=== PATIENT | male | born 1990 | race Caucasian/White ===

== ENCOUNTER 2024-04-10 20:15 | Emergency (ER) | payer OTHER ==
[2024-04-10] MEDS ORDERED: KETOROLAC 30 MG/ML INJ ONE (22:37)
[2024-04-10] MEDS ORDERED: dexAMETHasone 10 MG/ML VIAL ONE (22:37)
[2024-04-10] MEDS ORDERED: LIDOCAINE 4% PATCH ONE (22:38)
[2024-04-10] MEDS ORDERED: HYDROCODONE/APAP 5/325 MG TAB ONE (22:38)
--- NOTE | 2024-04-11 00:10 | ER ---
Nurse's Notes [facility] Name: Da Cook Age: 33 yrs Sex: Male : 1990 Arrival Date: 04/10/2024 Time: 20:15 Bed 8 Private MD: Diagnosis: Pain in thoracic spine;anterior compression T6/T8 Presentation: 04/10 20:34 Chief complaint: Patient states: Pt c/o sudden onset of severe middle back pain while tl4 carrying heavy soda box while walking down steps. Pt states he heard and felt a 'pop'. Coronavirus screen: At this time, the client does not indicate any symptoms associated with coronavirus-19. Ebola Screen: No symptoms or risks identified at this time. Initial Sepsis Screen: Does the patient meet any 2 criteria? No. Patient's initial sepsis screen is negative. Does the patient have a suspected source of infection? No. Patient's initial sepsis screen is negative. Risk Assessment: Do you want to hurt yourself or someone else? Patient reports no desire to harm self or others. Onset of symptoms was April 10, 2024 at 19:30. 20:34 Method Of Arrival: Wheelchair tl4 20:34 Acuity: LUPE 3 tl4 Triage Assessment: 20:36 General: Appears uncomfortable, Behavior is cooperative. Pain: Complains of pain in tl4 back. EENT: No signs and/or symptoms were reported regarding the EENT system. Neuro: Level of Consciousness is awake, alert, obeys commands, Oriented to person, place, time, situation, Moves all extremities. Full function. Cardiovascular: Capillary refill < 3 seconds Patient's skin is warm and dry. Respiratory: Airway is patent Respiratory effort is even, unlabored, Respiratory pattern is regular, symmetrical. GI: No signs and/or symptoms were reported involving the gastrointestinal system. : No signs and/or symptoms were reported regarding the genitourinary system. Derm: No signs and/or symptoms reported regarding the dermatologic system. Musculoskeletal: pain in middle back. Historical: - Allergies: 20:36 No Known Allergies; tl4 - Home Meds: 20:36 None [Active]; tl4 - PMHx: 20:36 None; tl4 - PSHx: 20:36 None; tl4 - Immunization history:: Adult Immunizations unknown. - Infectious Disease History:: Denies. - Social history:: Smoking status: Patient denies any tobacco usage or history of. Screenin:58 [facility] ED Fall Risk Assessment (Adult) History of falling in the last 3 months, tm6 including since admission No falls in past 3 months (0 pts) Confusion or Disorientation No (0 pts) Intoxicated or Sedated No (0 pts) Impaired Gait No (0 pts) Mobility Assist Device Used No (0 pt) Altered Elimination No (0 pt) Score/Fall Risk Level 0 - 2 = Low Risk Oriented to surroundings, Maintained a safe environment, Educated pt \T\ family on fall prevention, incl call for assistance when getting out of bed. Abuse screen: Denies threats or abuse. Denies injuries from another. Nutritional screening: No deficits noted. Tuberculosis screening: No symptoms or risk factors identified. Assessment: 22:58 General: Appears uncomfortable, Behavior is calm, cooperative. Pain: Complains of pain tm6 in thoracic area Pain does not radiate. Pain currently is 10 out of 10 on a pain scale. Quality of pain is described as sharp, Pain began suddenly, Aggravated by increased activity, repositioning. Neuro: Level of Consciousness is awake, alert, obeys commands, Oriented to person, place, time, situation. Cardiovascular: Patient's skin is warm and dry. Respiratory: Airway is patent Respiratory effort is even, unlabored, Respiratory pattern is regular, symmetrical. GI: Abdomen is round non-distended. : No signs and/or symptoms were reported regarding the genitourinary system. EENT: No signs and/or symptoms were reported regarding the EENT system. Derm: No signs and/or symptoms reported regarding the dermatologic system. Musculoskeletal: Reports pain in thoracic area since earlier today. Pain is 10 out of 10 on a pain scale. 04/11 00:09 Reassessment: Patient and/or family updated on plan of care and expected duration. Pain ha1 level reassessed. Patient is alert, oriented x 3, equal unlabored respirations, skin warm/dry/pink. Vital Signs: 04/10 20:34 BP 161 / 82; Pulse 86; Resp 20; Temp 97.8(TE); Pulse Ox 99% on R/A; Weight 181.44 kg; tl4 Height 6 ft. 2 in. ; Pain 10/10; 04/11 00:00 BP 130 / 96; Pulse 73; Resp 17 S; Pulse Ox 100% on R/A; ha1 04/10 20:34 Body Mass Index 51.36 (181.44 kg, 187.96 cm) tl4 07 20:34 Pain Scale: Adult tl4 ED Course: 04/10 20:16 Patient arrived in ED. im 20:26 Pearl Clark PA-C is PHCP. sb4 20:26 Elio Vazquez MD is Attending Physician. sb4 20:36 Triage completed. tl4 20:37 Arm band placed on right wrist. tl4 22:57 Ephraim Thomas, JIMBO is Primary Nurse. tm6 22:58 Patient has correct armband on for positive identification. Bed in low position. Call tm6 light in reach. Side rails up X 1. Provided Education on: use of call calderon. Client placed on continuous cardiac and pulse oximetry monitoring. NIBP monitoring applied. Pulse ox on. NIBP on. Door closed. Noise minimized. Lights dimmed. 23:09 Spine Thoracic Ap/Lat XRAY In Process Unspecified. EDMS 04/11 00:21 No provider procedures requiring assistance completed. Patient did not have IV access ha1 during this emergency room visit. Administered Medications: 04/10 22:57 Drug: Lidoderm Topical Patch 5 % (700 mg/patch) 1 patches Topical once; leave on for 12 tm6 hours; cover most painful area; may cut into smaller pieces Route: Topical; Site: affected area; 04/11 00:21 Follow up: Response: No adverse reaction 1 04/10 22:58 Drug: Ketorolac IM 60 mg IM once Route: IM; Site: left gluteus; tm6 04/11 00:00 Follow up: Response: No adverse reaction; Marked relief of symptoms; Pain is decreased ha1 04/10 22:58 Drug: Dexamethasone IM 10 mg IM once Route: IM; Site: right deltoid; tm6 04/11 00:00 Follow up: Response: No adverse reaction; Marked relief of symptoms 1 04/10 22:58 Drug: HYDROcodone-acetaminophen PO 5 mg-325 mg 2 tabs PO once Route: PO; tm6 04/11 00:00 Follow up: Response: No adverse reaction; Pain is decreased; RASS: Alert and Calm (0) ha Medication: 07/06 22:58 VIS not applicable for this client. tm6 Outcome: 04/11 00:09 Discharge ordered by . corine 00:21 Discharged to home ambulatory, with family, ha1 00:21 Condition: stable 00:21 Discharge instructions given to patient, family, Instructed on discharge instructions, follow up and referral plans. medication usage, Demonstrated understanding of instructions, follow-up care, medications, Prescriptions given X 3, 00:22 Patient left the ED. ha1 Signatures: Dispatcher [employer] EDIN Amanda Webb RN RN ha1 Pearl Clark, PA-C PA-C sb4 iDor Ponce Tawney RN RN tm6 Lev Ramos RN RN tl4
--- NOTE | 2024-04-11 00:10 | EDPHYS ---
Physician Documentation [facility] Name: Da Cook Age: 33 yrs Sex: Male : 1990 Arrival Date: 04/10/2024 Time: 20:15 Bed 8 Private MD: ED Physician Elio Vazquez HPI: 04/10 22:19 This 33 yrs old Male presents to ER via Wheelchair with complaints of Back Pain. sb4 22:19 The patient presents with pain that is acute. The symptoms are located in the thoracic sb4 area. Onset: The symptoms/episode began/occurred just prior to arrival. The pain does not radiate. Associated signs and symptoms: The patient has no apparent associated signs or symptoms. The problem was sustained when lifting heavy object. The patient has not experienced similar symptoms in the past. The patient has not recently seen a physician. Historical: - Allergies: 20:36 No Known Allergies; tl4 - Home Meds: 20:36 None [Active]; tl4 - PMHx: 20:36 None; tl4 - PSHx: 20:36 None; tl4 - Immunization history:: Adult Immunizations unknown. - Infectious Disease History:: Denies. - Social history:: Smoking status: Patient denies any tobacco usage or history of. ROS: 22:19 Constitutional: Negative for fever, chills, and weight loss, sb4 22:19 Back: Positive for injury or acute deformity, decreased range of motion, pain at rest, pain with movement, of the thoracic area, 22:19 All other systems are negative, Exam: 22:19 Head/Face: Normocephalic, atraumatic. Eyes: Extra-ocular motions intact. Periorbital sb4 areas with no swelling, redness, or edema. ENT: Mucous membranes moist. Skin: Warm, dry with normal turgor. Normal color with no rashes, no lesions, and no evidence of cellulitis. MS/ Extremity: Pulses equal, no cyanosis. Neurovascular intact. Full, normal range of motion. 22:19 Constitutional: The patient appears alert, awake, obese, in obvious pain, uncomfortable, 22:19 Back: pain, that is moderate, ROM is painful, normal spinal alignment noted, CVA tenderness, is absent, muscle spasm, is not present, 22:19 Neuro: Motor: is grossly normal based on the patient's age, no acute changes, moves all fours, Sensation: is normal, Gait: unable to assess, in pain, Vital Signs: 20:34 BP 161 / 82; Pulse 86; Resp 20; Temp 97.8(TE); Pulse Ox 99% on R/A; Weight 181.44 kg; tl4 Height 6 ft. 2 in. ; Pain 10/10; 04/11 00:00 BP 130 / 96; Pulse 73; Resp 17 S; Pulse Ox 100% on R/A; ha1 04/10 20:34 Body Mass Index 51.36 (181.44 kg, 187.96 cm) tl4 04/10 20:34 Pain Scale: Adult tl4 MDM: 04/10 20:29 Patient medically screened. sb4 04/11 00:08 Data reviewed: vital signs, nurses notes, lab test result(s), radiologic studies, and sb4 as a result, I will discharge patient. Counseling: I had a detailed discussion with the patient and/or guardian regarding the historical points, exam findings, and any diagnostic results supporting the discharge/admit diagnosis, radiology results, to return to the emergency department if symptoms worsen or persist or if there are any questions or concerns that arise at home. 04/10 22:18 Order name: Spine Thoracic Ap/Lat XRAY sb4 Administered Medications: 04/10 22:57 Drug: Lidoderm Topical Patch 5 % (700 mg/patch) 1 patches Topical once; leave on for 12 tm6 hours; cover most painful area; may cut into smaller pieces Route: Topical; Site: affected area; 04/11 00:21 Follow up: Response: No adverse reaction 04/10 22:58 Drug: Ketorolac IM 60 mg IM once Route: IM; Site: left gluteus; tm6 04/11 00:00 Follow up: Response: No adverse reaction; Marked relief of symptoms; Pain is decreased 1 04/10 22:58 Drug: Dexamethasone IM 10 mg IM once Route: IM; Site: right deltoid; tm6 04/11 00:00 Follow up: Response: No adverse reaction; Marked relief of symptoms [facility] 04/10 22:58 Drug: HYDROcodone-acetaminophen PO 5 mg-325 mg 2 tabs PO once Route: PO; tm6 04/11 00:00 Follow up: Response: No adverse reaction; Pain is decreased; RASS: Alert and Calm (0) ha1 Disposition: 04:18 Co-signature as Attending Physician, Elio Vazquez MD I agree with the assessment and constantino plan of care. Disposition Summary: 04/11/24 00:09 Discharge Ordered Notes: Location: Home sb4 Problem: new sb4 Symptoms: have improved sb4 Condition: Stable sb4 Diagnosis - Pain in thoracic spine sb4 - anterior compression T6/T8 sb4 Followup: sb4 - With: Private Physician - When: As needed - Reason: Recheck today's complaints, Re-evaluation by your physician Discharge Instructions: - Discharge Summary Sheet sb4 - Acute Back Pain, Adult sb4 - Thoracic Strain, [id number] sb4 Forms: - Work release form sb4 - Patient Portal Instructions sb4 - Leadership Thank You Letter sb4 Prescriptions: - Cyclobenzaprine 10 mg Oral Tablet - take 1 tablet ORAL route every 8 hours As needed; 30 tablet; Refills: 0, sb4 Product Selection Permitted - Diclofenac Sodium 75 mg Oral Tablet Sustained Release - take 1 tablet ORAL route 2 times per day; 30 tablet; Refills: 0, Product sb4 Selection Permitted - Medrol (Jeffrey) 4 mg Oral Tablets, Dose Pack - take 1 tablet ORAL route as directed - follow package instructions; 1 packet; sb4 Refills: 0, Product Selection Permitted Signatures: Dispatcher [employer] Elio Slaughter MD MD cha Brown, Sophia, PA-C PALeaC sb4 Ephraim Thomas RN RN tm6 Lev Ramos RN RN tl4 Amanda Webb RN ha1 Corrections: (The following items were deleted from the chart) 00:10 00:09 Other injury of muscle and tendon of back wall of thorax sb4 sb4
[2024-04-11 00:57] VITALS: BP 130/96; TEMP 97.8; O2SAT 100
--- NOTE | 2024-04-13 11:19 | RAD REPORT ---
EXAM DESCRIPTION: RAD - Thoracic Spine Ap/Lat - 04/10/2024 11:07 pm CLINICAL HISTORY: PAIN COMPARISON: None. FINDINGS: 2 views of the thoracic spine. Pedicles identified throughout. Mild levoconvex curva ture of the superior thoracic spine. Mild endplate spondylosis and facet arthropathy. No disc height narrowing. Suboptimal evaluation of T1 and T2 and lateral views due to overlying soft tissues. Anteri or loss of vertebral body height at T6 and T8 with possible cortical step-off and T6. Mild multilevel loss of intervertebral disc height with endplate spondylosis. Normal osseous mineralization. No pneumothorax the visualized lungs. IMPRESSION: Age-indeterminate mild anterior compression deformities of T6 and T8 with possible corti daphne step-off at T6. MRI or CT of the thoracic spine recommended for additional characterization. Electronically signed by: Oliverio Campbell DO 04/10/2024 11:19 PM CDT [id number] Due to temporary technical issues with the PACS/Fluency reporting system, reports are being signed by the in house radiologist without review as a courtesy to ensure prompt reporting. The interpreting r adiologist is fully responsible for the content of the report.
== END 2024-04-11 00:22 | disposition home or self-care (01) ==
LOC: ER 20:15
DX: S22.050A Wedge compression fracture of T5-T6 vertebra, initial encounter for closed fracture (principal); S22.060A Wedge compression fracture of T7-T8 vertebra, initial encounter for closed fracture
CPT/HCPCS: 72070; 96372; 99284; J2001; J1100